=== PATIENT | female | born 1980 | race Caucasian/White ===

== ENCOUNTER 2020-12-22 16:16 | Inpatient (IN) | payer OTHER ==
[~2020-12-22] VITALS: Ht 167.6 cm; Wt 68.0 kg
[2020-12-29] MEDS ORDERED: OMEPRAZOLE20 MG (08:22)
[2020-12-31] MEDS ORDERED: INTEGRA PLUS C1 EACH PO (14:41)
== END 2020-12-31 14:57 | disposition home or self-care (01) | DRG 744 ==
LOC: ER 16:16 → SEC-K 12-23 00:42 → OB/GYN 12-23 00:42
PROVIDERS: Obstetrics & Gynecology; ADMIT Student in an Organized Health Care Education/Training Program; ATTEND Student in an Organized Health Care Education/Training Program
PROC: 0T9030Z Drainage of Right Kidney with Drainage Device, Percutaneous Approach (ICD-10-PCS; 2020-12-23)
PROC: 0T9130Z Drainage of Left Kidney with Drainage Device, Percutaneous Approach (ICD-10-PCS; 2020-12-23)
PROC: BW21ZZZ Computerized Tomography (CT Scan) of Abdomen and Pelvis (ICD-10-PCS; 2020-12-23)
PROC: 0UDB7ZX Extraction of Endometrium, Via Natural or Artificial Opening, Diagnostic (ICD-10-PCS; 2020-12-25)
PROC: 0UBC8ZX Excision of Cervix, Via Natural or Artificial Opening Endoscopic, Diagnostic (ICD-10-PCS; principal; 2020-12-25 14:00)
DX: C53.0 Malignant neoplasm of endocervix (principal); N17.8 Other acute kidney failure; N13.39 Other hydronephrosis; D63.0 Anemia in neoplastic disease; D64.9 Anemia, unspecified; R19.00 Intra-abdominal and pelvic swelling, mass and lump, unspecified site

== ENCOUNTER 2021-01-05 08:11 | Outpatient (CLI) | payer OTHER ==
[~2021-01-05 08:11] MED LIST: INTEGRA PLUS C1 EACH PO; OMEPRAZOLE20 MG
== END 2021-01-05 08:31 | disposition home or self-care (01) ==
LOC: MRI 08:11
PROVIDERS: ATTEND Obstetrics & Gynecology
DX: N13.39 Other hydronephrosis (principal); C53.1 Malignant neoplasm of exocervix; I10 Essential (primary) hypertension
CPT/HCPCS: 72197; 74183

== ENCOUNTER 2021-02-05 07:48 | Outpatient (CLI) | payer OTHER | END 2021-02-05 07:50 | disposition home or self-care (01) | LOC: NUCLEAR 07:48 | PROVIDERS: ATTEND Obstetrics & Gynecology Gynecologic Oncology | DX: C53.8 Malignant neoplasm of overlapping sites of cervix uteri (principal) | CPT/HCPCS: 78815; A9552 ==